=== PATIENT | male | born 1995 ===

== ENCOUNTER 2020-04-15 10:30 | Emergency (ER) | payer MEDICAID ==
[2020-04-15] MEDS ORDERED: Alum Hydrox/Mag Hydrox/Simeth 15 ML, Lidocaine 2% 15 ML PO ONE ×2 (10:36)
--- NOTE | 2020-04-15 10:39 | EDM.PDOC ---
ED HPI GENERAL MEDICAL PROBLEM - General Chief Complaint: Chest Pain Stated Complaint: CHEST PAINS VIA [facility] Time Seen by Provider: 04/15/20 10:35 Source of Information: Reports: Patient, EMS History Limitations: Reports: No Limitations - History of Present Illness Onset: Today Location: Reports: Chest Quality: Reports: Burning Severity: Moderate - Related Data Allergies Allergy/AdvReac Type Severity Reaction Status Date / Time No Known Allergies Allergy Verified 04/15/20 10:34 Home Meds: Home Meds Albuterol [Ventolin HFA] 1 - 2 puff IN ASDIRECTED PRN 04/15/20 [History] ED ROS GENERAL - Review of Systems Review Of Systems: See Below Constitutional: Denies: Fever Respiratory: Reports: No Symptoms Cardiovascular: Reports: Chest Pain GI/Abdominal: Denies: Abdominal Pain Musculoskeletal: Reports: No Symptoms ED EXAM, GENERAL - Physical Exam Exam: See Below Exam Limited By: No Limitations General Appearance: Alert, Obese Nose: Normal Inspection Throat/Mouth: Normal Inspection Head: Atraumatic Respiratory/Chest: No Respiratory Distress, Lungs Clear Cardiovascular: Normal Peripheral Pulses, Regular Rate, Rhythm Peripheral Pulses: 2+: Radial (R) GI/Abdominal: Soft, Non-Tender, Distended Neurological: Alert, Oriented Psychiatric: Normal Affect, Normal Mood EKG INTERPRETATION EKG Date: 04/15/20 Time: 10:10 Rhythm: NSR Rate (Beats/Min): 114 P-Wave: Present ST-T: Normal Course - Vital Signs Text/Narrative:: Initial differential diagnosis: Anxiety, alcohol withdrawal, GERD, coronary artery disease, MS. Twelve-lead EKG shows no evidence of ischemia. There is mild elevation of liver enzymes and lactic acid consistent with alcohol use. Patient was administered aspirin and nitroglycerin in the ambulance in route here and this made no difference in his pain. Patient was then administered a GI cocktail here, to no affect. Pt. has requested to talk w/social work instructor re: Rule 25. He will be advised to do that at [place]. Last Recorded V/S: Last Vital Signs Temp 36.7 C 04/15/20 10:37 Pulse 130 H 04/15/20 10:37 Resp 12 04/15/20 10:37 BP 148/72 H 04/15/20 10:37 Pulse Ox 95 04/15/20 10:37 - Orders/Labs/Meds Orders: Active Orders 24 hr Category Date Time Status Chest 2V [CR] Stat Exams 04/15/20 10:35 Taken DRUG SCREEN, URINE [URCHEM] Urgent Lab 04/15/20 10:35 Ordered UA W/MICROSCOPIC [URIN] Urgent Lab 04/15/20 10:35 Ordered Labs: Laboratory Tests 04/15/20 04/15/20 04/15/20 Range/Units 10:45 10:45 10:45 WBC 9.8 (4.5-11.0) K/uL RBC 5.99 H (4.30-5.90) M/uL Hgb 18.0 H (12.0-15.0) g/dL Hct 54.7 H (40.0-54.0) % MCV 91 (80-98) fL MCH 30 (27-31) pg MCHC 33 (32-36) % Plt Count 282 (150-400) K/uL PT 11.7 (9.5-12.0) sec INR 1.07 (0.80-1.20) Sodium (140-148) mmol/L Potassium (3.6-5.2) mmol/L Chloride (100-108) mmol/L Carbon Dioxide (21-32) mmol/L Anion Gap (5.0-14.0) mmol/L BUN (7-18) mg/dL Creatinine (0.8-1.3) mg/dL Est Cr Clr Drug Dosing mL/min Estimated GFR (MDRD) (>60) Glucose (74-106) mg/dL Lactic Acid (0.4-2.0) mmol/L Calcium (8.5-10.1) mg/dL Total Bilirubin (0.2-1.0) mg/dL AST (15-37) U/L ALT (12-78) U/L Alkaline Phosphatase (46-116) U/L Troponin I 0.000 (0.000-0.056) ng/mL Total Protein (6.4-8.2) g/dL Albumin (3.4-5.0) g/dL Globulin (2.3-3.5) g/dL Albumin/Globulin Ratio (1.2-2.2) 04/15/20 04/15/20 Range/Units 10:45 10:45 WBC (4.5-11.0) K/uL RBC (4.30-5.90) M/uL Hgb (12.0-15.0) g/dL Hct (40.0-54.0) % MCV (80-98) fL MCH (27-31) pg MCHC (32-36) % Plt Count (150-400) K/uL PT (9.5-12.0) sec INR (0.80-1.20) Sodium 138 L (140-148) mmol/L Potassium 3.8 (3.6-5.2) mmol/L Chloride 99 L (100-108) mmol/L Carbon Dioxide 26 (21-32) mmol/L Anion Gap 16.8 H (5.0-14.0) mmol/L BUN 5 L (7-18) mg/dL Creatinine 1.0 (0.8-1.3) mg/dL Est Cr Clr Drug Dosing 125.02 mL/min Estimated GFR (MDRD) > 60 (>60) Glucose 123 H (74-106) mg/dL Lactic Acid 4.5 H (0.4-2.0) mmol/L Calcium 8.8 (8.5-10.1) mg/dL Total Bilirubin 0.5 (0.2-1.0) mg/dL AST 45 H (15-37) U/L ALT 59 (12-78) U/L Alkaline Phosphatase 75 (46-116) U/L Troponin I (0.000-0.056) ng/mL Total Protein 7.5 (6.4-8.2) g/dL Albumin 3.6 (3.4-5.0) g/dL Globulin 3.9 H (2.3-3.5) g/dL Albumin/Globulin Ratio 0.9 L (1.2-2.2) Meds: Medications Discontinued Medications Generic Name Dose Route Start Last Admin Trade Name Freq PRN Reason Stop Dose Admin Al Hydroxide/Mg Hydroxide 15 0 ml 04/15/20 10:36 04/15/20 10:49 ml/ Lidocaine HCl 15 ml PO 04/15/20 10:37 15 ml ONETIME ONE Administration Prochlorperazine Maleate 10 mg 04/15/20 11:19 04/15/20 11:29 Compazine PO 04/15/20 11:20 10 mg ONETIME ONE Administration Departure - Departure Time of Disposition: 11:31 Disposition: DC/Tfer to Other 70 Reason for Transfer *Q: Other (Going back to [place] for detox) Condition: Good Clinical Impression: Gastroesophageal reflux disease Qualifiers: Esophagitis presence: esophagitis presence not specified Qualified Code(s): K21.9 - Gastro-esophageal reflux disease without esophagitis Alcohol withdrawal Qualifiers: Complication of substance-induced condition: uncomplicated Qualified Code(s): F10.230 - Alcohol dependence with withdrawal, uncomplicated Instructions: Heartburn, [id number], Alcohol Withdrawal Syndrome, [id number] Referrals: PCP,None [Primary Care Provider] - Forms: ED Department Discharge Additional Instructions: Consider taking Pepto-Bismol or Pepcid [id number] for heartburn. Discuss with social work instructor at [place] rule 52. No evidence of any heart disease at this time. Sepsis Event Note (ED) - Focused Exam Vital Signs: Vital Signs Temp Pulse Resp BP Pulse Ox 04/15/20 10:37 36.7 C 130 H 12 148/72 H 95 04/15/20 10:35 36.7 C 130 H 12 148/72 H 95 - My Orders Last 24 Hours: My Active Orders 04/15/20 10:35 Chest 2V [CR] Stat DRUG SCREEN, URINE [URCHEM] Urgent UA W/MICROSCOPIC [URIN] Urgent - Assessment/Plan Last 24 Hours: My Active Orders 04/15/20 10:35 Chest 2V [CR] Stat DRUG SCREEN, URINE [URCHEM] Urgent UA W/MICROSCOPIC [URIN] Urgent
[2020-04-15] MEDS ORDERED: Prochlorperazine 10 MG Tab PO ONE (11:19)
[2020-04-15] MEDS ORDERED: Diazepam 5 MG Tab PO ONE (12:27)
--- NOTE | 2020-04-15 12:59 | CR ---
CHEST: 2 view CLINICAL HISTORY:Pain COMPARISON:None FINDINGS: The heart size, pulmonary vascularity and hilar structures are normal. No infiltrate effusion or pneumothorax is seen. IMPRESSION: No acute cardiopulmonary process.
== END 2020-04-15 13:04 | disposition other institution (70) ==
LOC: JP.ED 10:30
DX: K21.9 Gastro-esophageal reflux disease without esophagitis (principal); F10.230 Alcohol dependence with withdrawal, uncomplicated
CPT/HCPCS: 36415; 71046; 80053; 83605; 84484; 85027; 85610; 99285; A9270; Q0164